=== PATIENT | female | born 1995 | race Caucasian/White ===

== ENCOUNTER 2019-01-28 10:25 | Emergency (ER) | payer OTHER ==
[~2019-01-28] VITALS: Ht 165.1 cm; Wt 72.6 kg
--- NOTE | 2019-01-28 10:44 | NUR ---
Patient discharged to home in stable conditon. Written and verbal after care instructions given. Patient verbalizes understanding of instructions.pt walks in steady gait.
== END 2019-01-28 10:47 | disposition home or self-care (01) ==
LOC: ER 10:25
DX: H66.92 Otitis media, unspecified, left ear (principal); R05 Cough; Z88.2 Allergy status to sulfonamides
CPT/HCPCS: A4663